=== PATIENT | male | born 1990 | race Caucasian/White ===

== ENCOUNTER 2020-12-23 17:03 | Emergency (ER) | payer MEDICAID, BC ==
[~2020-12-23] VITALS: Ht 180.3 cm; Wt 122.5 kg
[2020-12-23 17:03] VITALS: BP 119/67
--- NOTE | 2020-12-23 17:03 | NUR ---
PT BROUGHT IN BY [facility] ASSISTANCE.
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
[2020-12-23] MEDS ORDERED: MORPHINE SULFATE 4 MG/ML SYR ONE (17:07)
[2020-12-23] MEDS ORDERED: ONDANSETRON 4 MG/2 ML VIAL ONE (17:07)
--- NOTE | 2020-12-23 17:11 | NUR ---
CONTACTED [facility] AND SPOKE TO DISPATCH. DISPATCER SENDING AN OFFICER WHEN ONE IS AVAILABLE.
--- NOTE | 2020-12-23 17:15 | NUR ---
[place] [employer] AT BEDSIDE
--- NOTE | 2020-12-23 17:21 | NUR ---
XRAY AT BEDSIDE
[2020-12-23] MEDS ORDERED: MORPHINE SULFATE 4 MG/ML SYR IVP ONE (17:25)
[2020-12-23] MEDS ORDERED: ONDANSETRON 4 MG/2 ML VIAL IVP ONE (17:25)
--- NOTE | 2020-12-23 17:40 | NUR ---
COLLECTED BLOOD WALKED TO LAB.
--- NOTE | 2020-12-23 17:46 | NUR ---
PT TAKEN TO CT SCAN VIA [facility]
[2020-12-23 18:00] LABS: MEAN CORPUSCULAR HGB CONC 35 g/dL (33-37)
[2020-12-23 18:04] LABS: BASOPHILS # (AUTO) 0.1 K/uL (0.00-0.22); BASOPHILS % (AUTO) 0.6 % (0.0-2.0); EOSINOPHILS # (AUTO) 0.1 K/uL (0-0.4); HEMATOCRIT 41.4 % (36-52); HEMOGLOBIN 14.3 g/dL (12.0-18.0); LYMPHOCYTES # (AUTO) 3.8 K/uL (2.0-11.5); LYMPHOCYTES % (AUTO) 36.7 % (20.5-51.1); MEAN CORPUSCULAR HEMOGLOBIN 29 pg (27-31); MEAN CORPUSCULAR VOLUME 84.2 fL (80-94); MONOCYTES # (AUTO) 0.7 K/uL (0.8-1.0); MONOCYTES % (AUTO) 7.2 % (1.7-9.3); NEUTROPHILS # (AUTO) 5.6 K/uL (1.8-7.7); NEUTROPHILS % (AUTO) 54.5 % (42.2-75.2); PLATELET COUNT (AUTO) 255 K/uL (140-450); RED BLOOD CELL COUNT(AUTO) 4.92 MIL/uL (4.20-6.10); RED CELL DISTRIBUTION WIDTH 13.5 % (11.6-13.7); WHITE BLOOD COUNT (AUTO) 10.3 K/uL (4.8-10.8)
--- NOTE | 2020-12-23 18:12 | NUR ---
PT RETURNED FROM CT SCAN
--- NOTE | 2020-12-23 18:16 | NUR ---
PT UNABLE TO PROVIDE URINE, ERMD MADE AWARE
[2020-12-23 18:40] LABS: ALBUMIN 3.4 g/dL (3.4-5.0); ANION GAP 13.5 (8-16); ASPARTATE AMINOTRANSFERASE 16 U/L (15-37); CARBON DIOXIDE 22.7 mmol/L (21-32); CHLORIDE 110 mmol/L (98-107); CREATININE 1.2 mg/dL (0.6-1.3); GFR ARICAN-AMERICAN 91 mL/min (>90); GLUCOSE 130 mg/dL (74-106); POTASSIUM 3.2 mmol/L (3.5-5.1); SODIUM SERUM 143 mmol/L (136-145); TOTAL BILIRUBIN 0.4 mg/dL (0.0-1.0); UREA NITROGEN, BLOOD 12 mg/dL (7-18)
[2020-12-23] MEDS ORDERED: HYDROmorphone PFS 2 MG/ML SYR IVP ONE (18:40)
[2020-12-23] MEDS ORDERED: NACL 0.9% 2,000 ML IV ONE (18:40)
[2020-12-23] MEDS ORDERED: ceFAZolin 1,000 MG VIAL ONE (18:42)
[2020-12-23 18:56] LABS: PROTHROMBIN TIME 10.6 secs (10.8-13.4)
--- NOTE | 2020-12-23 19:07 | NUR ---
REPORT GIVEN TO CARLA LUCAS FOR CONTINUITY OF CARE
--- NOTE | 2020-12-23 19:10 | NUR ---
ASSUMED CARE OF PATIENT - [place] [employer] AT BEDSIDE. PENDING TRANSFER TO [facility] ED.
--- NOTE | 2020-12-23 19:57 | NUR ---
Patient to be transferred to [facility]. Is being transferred due to TRAUMA TRANSFER. Receiving facility has accepting physician and available space. ER physician has signed transfer form. Patient or responsible alliance party has agreed to transfer and signed form. Patient belongings inventoried and will be sent with patient. Copy of nursing notes, lab reports, EKG, Physicians Orders and X-rays to be sent with patient. Report called to SHAYY BUSTOS at receiving facility. [facility] ambulance service has been called for transfer. ETA is 2014.
--- NOTE | 2020-12-23 21:32 | NUR ---
TRANSPORT BEDSIDE, PT TAKEN TO [facility].
[2020-12-23 21:33] VITALS: BP 145/56
--- NOTE | 2020-12-23 21:36 | NUR ---
[facility] LEFT WITH PATIENT.
--- NOTE | 2020-12-25 19:34 | NUR ---
LATE ENTRY- 0.9% NS BOLUS DISCONTINUED AT 2134
== END 2020-12-23 21:33 | disposition short-term general hospital (02) ==
LOC: MED 17:03
DX: S42.492A Other displaced fracture of lower end of left humerus, initial encounter for closed fracture (principal); F12.90 Cannabis use, unspecified, uncomplicated; W34.00XA Accidental discharge from unspecified firearms or gun, initial encounter; Y93.89 Activity, other specified; Y92.481 Parking lot as the place of occurrence of the external cause; Y99.8 Other external cause status
CPT/HCPCS: 36415; 71045; 73060; 73080; 73206; 80053; 85025; 85610; 85730; 86886; 86900; 86901; 90471; 90715; 96365; 96374; 96375; 99291; G0482; J0690; J1170; J2270; J2405; J7030; Q0092